=== PATIENT | male | born 1985 | race American Indian/Alaskan Native ===

== ENCOUNTER 2018-03-22 16:11 | Emergency (ER) | payer OTHER ==
[2018-03-22] MEDS ORDERED: MOTRIN PO ONE (18:59)
[2018-03-22] MEDS ORDERED: FLEXERIL PO ONE (19:06)
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
[2018-03-22 20:14] VITALS: BP 137/95
== END 2018-03-22 20:15 | disposition home or self-care (01) ==
LOC: ED 16:11
DX: S00.03XA Contusion of scalp, initial encounter (principal); S13.4XXA Sprain of ligaments of cervical spine, initial encounter; V89.2XXA Person injured in unspecified motor-vehicle accident, traffic, initial encounter; Y93.89 Activity, other specified; Y92.89 Other specified places as the place of occurrence of the external cause; Y99.8 Other external cause status
CPT/HCPCS: 70450; 72125; 99284